=== PATIENT | female | born 1995 | race Caucasian/White ===

== ENCOUNTER 2023-07-11 03:19 | Emergency (ER) | payer OTHER ==
[~2023-07-11] VITALS: Ht 170.2 cm; Wt 104.0 kg
[2023-07-11 03:21] VITALS: BP 124/76; TEMP 96.7; O2SAT 97
[2023-07-11] MEDS ORDERED: AMPHET/DEXTR (03:26)
== END 2023-07-11 04:22 | disposition left against medical advice (07) ==
LOC: M ED 03:19
DX: Z53.21 Procedure and treatment not carried out due to patient leaving prior to being seen by health care provider (principal)

== ENCOUNTER 2023-08-30 00:29 | Emergency (ER) | payer OTHER ==
[~2023-08-30 00:29] MED LIST: AMPHET/DEXTR
[2023-08-30 00:37] VITALS: BP 113/65; TEMP 97.7; O2SAT 100
== END 2023-08-30 01:00 | disposition left against medical advice (07) ==
LOC: M ED 00:29 → EDBD 00:29 → M ED 01:00
DX: Z53.21 Procedure and treatment not carried out due to patient leaving prior to being seen by health care provider (principal)